=== PATIENT | male | born 1950 | race Caucasian/White ===

== ENCOUNTER 2016-07-07 13:40 | Emergency (ER) | payer MEDICARE ==
[~2016-07-07] VITALS: Ht 175.2 cm; Wt 74.8 kg
[~2016-07-07 13:40] MED LIST: PREDNISONE10 MG PO
[2016-07-07 14:04] VITALS: BP 118/70
[2016-07-07] MEDS ORDERED: NORCO 5-325 TA1 EACH PO (16:03)
[2016-07-07] MEDS ORDERED: CLINDAMYCIN HC300 MG PO (16:03)
== END 2016-07-07 16:10 | disposition home or self-care (01) ==
LOC: ED 13:40
DX: S62.605B Fracture of unspecified phalanx of left ring finger, initial encounter for open fracture (principal); Z88.0 Allergy status to penicillin; W31.2XXA Contact with powered woodworking and forming machines, initial encounter; Y93.89 Activity, other specified; Y92.89 Other specified places as the place of occurrence of the external cause; Y99.8 Other external cause status

== ENCOUNTER → 2017-11-18 | Outpatient (CLI) | payer MEDICARE ==
[~2017-11-18] MED LIST changes: +CHERATUSSIN AC118 M1 PO; +CLINDAMYCIN HC300 MG PO; +DOXYCYCLINE100 M3 PO; +MULTIPLE VITAM1 EAC1 PO; +NORCO 5-325 TA1 EACH PO; +VITAMIN D-32000 UNI1 PO; +[UNRECOGNIZED DRUG - OTHER] PO
[2017-11-18 10:10] LABS: BASO % 0.5 % (0.0-1.0); EOS # 0.1 10*3/uL (0.0-0.4); EOS % 2.1 % (1.0-4.0); HEMOGLOBIN 13.5 g/dl (14.0-18.0); LYMPH # 0.9 10*3/uL (1.3-4.4); LYMPH % 21.2 % (27.0-41.0); MEAN CELL VOLUME 94.9 fl (80.0-94.0); MEAN CORPUSCULAR HGB 31.3 pg (27.0-31.0); MEAN CORPUSCULAR HGB CONC 32.9 g/dl (33.0-37.0); MEAN PLATELET VOLUME 11.1 fl (9.6-12.3); MONO # 0.3 10*3/uL (0.1-1.0); MONO % 7.8 % (3.0-9.0); NEUT # 2.9 10*3/uL (2.3-7.9); NEUT % 68.2 % (47.0-73.0); PLATELET COUNT AUTOMATED 207 10*3/uL (130-400); RED BLOOD COUNT 4.32 10*6/uL (4.50-5.90); RED CELL DISTRI WIDTH 12.2 % (0-14.5); WHITE BLOOD COUNT 4.2 10*3/uL (4.8-10.8)
[2017-11-18 10:20] LABS: ALBUMIN 3.9 gm/dl (3.1-4.5); ALKALINE PHOSPHATASE 112 U/L (45-117); BILIRUBIN, DIRECT 0.1 mg/dL (0.0-0.2); BUN 17 mg/dl (7-24); CHLORIDE 105 mmol/L (98-107); CHOLESTEROL 172 mg/dL (<200); CREATININE 1.03 mg/dL (0.70-1.30); HDL CHOLESTEROL 48 mg/dl (40-60); SGOT/AST 18 IU/L (3-35); SGPT/ALT 18 U/L (12-78); SODIUM 142 mmol/L (136-145); THYROXINE (T4) TOTAL 10.1 ug/dl (4.5-12.1); TOTAL PROTEIN 7.7 gm/dL (6.4-8.2)
[2017-11-18 10:44] LABS: LDL CHOLESTEROL 114 mg/dL (9-159); TRIGLYCERIDES 49 mg/dl (<150); VLDL CHOLESTEROL 10 mg/dL (6-40)
[2017-11-19 07:04] LABS: FREE T3 010389 3.1 pg/mL (2.0-4.4)
[2017-11-19 08:08] LABS: HEPATITIS B SURFACE AG Negative (Negative); HEPATITIS C VIRUS ANTIBODY <0.1 s/co (0.0-0.9)
== END | disposition home or self-care (01) ==
LOC: LAB 09:25
PROVIDERS: Family Medicine
DX: Z12.5 Encounter for screening for malignant neoplasm of prostate (principal); R53.83 Other fatigue; Z79.899 Other long term (current) drug therapy

== ENCOUNTER → 2019-08-15 | Outpatient (CLI) | payer MEDICARE ==
[2019-08-15 11:25] LABS: CHOLESTEROL 192 mg/dL (<200); HDL CHOLESTEROL 43 mg/dl (40-60); LDL CHOLESTEROL 125 mg/dL (9-159); TRIGLYCERIDES 118 mg/dl (<150); VLDL CHOLESTEROL 24 mg/dL (6-40)
== END | disposition home or self-care (01) ==
LOC: LAB 10:16
PROVIDERS: Internal Medicine Cardiovascular Disease
DX: I10 Essential (primary) hypertension (principal)

== ENCOUNTER → 2019-08-18 | Outpatient (CLI) | payer MEDICARE | END | disposition home or self-care (01) | LOC: CARD 09:22 | DX: R06.02 Shortness of breath (principal) ==

== ENCOUNTER → 2021-02-28 | Outpatient (CLI) | payer MEDICARE ==
[2021-02-28 09:34] LABS: BASO % 0.4 % (0.0-1.0); EOS # 0.2 10*3/uL (0.0-0.4); EOS % 3.7 % (1.0-4.0); HEMATOCRIT 35.4 % (42.0-52.0); LYMPH # 1.3 10*3/uL (1.3-4.4); LYMPH % 25.6 % (27.0-41.0); MEAN CELL VOLUME 90.5 fl (80.0-94.0); MEAN CORPUSCULAR HGB 28.6 pg (27.0-31.0); MEAN CORPUSCULAR HGB CONC 31.6 g/dl (33.0-37.0); MEAN PLATELET VOLUME 11.2 fl (9.6-12.3); MONO # 0.4 10*3/uL (0.1-1.0); MONO % 8.9 % (3.0-9.0); PLATELET COUNT AUTOMATED 164 10*3/uL (130-400); RED BLOOD COUNT 3.91 10*6/uL (4.50-5.90); WHITE BLOOD COUNT 4.9 10*3/uL (4.8-10.8)
[2021-02-28 10:01] LABS: ALBUMIN 2.3 gm/dl (3.1-4.5); POTASSIUM 4.1 mmol/L (3.5-5.1)
[2021-02-28 10:04] LABS: CREATININE 1.86 mg/dL (0.70-1.30); TOTAL PROTEIN 6.6 gm/dL (6.4-8.2)
== END | disposition home or self-care (01) ==
LOC: LAB 09:07
PROVIDERS: ATTEND Internal Medicine Hematology & Oncology
DX: Z51.11 Encounter for antineoplastic chemotherapy (principal); C64.1 Malignant neoplasm of right kidney, except renal pelvis; M54.59 Other low back pain; K22.89 Other specified disease of esophagus; R22.31 Localized swelling, mass and lump, right upper limb